=== PATIENT | female | born 1985 | race American Indian/Alaskan Native ===

== ENCOUNTER 2017-01-02 02:31 | Emergency (ER) | payer SELFPAY ==
[2017-01-02 02:51] VITALS: BP 122/75
[2017-01-02] MEDS ORDERED: Ketorolac 60 MG/2 ML SDV IM ONE (03:12)
[2017-01-02] MEDS ORDERED: LORazepam 1 MG Tab PO ONE (03:13)
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
== END 2017-01-02 03:53 | disposition home or self-care (01) ==
LOC: JP.ED 02:31
DX: F41.8 Other specified anxiety disorders (principal); R07.89 Other chest pain; F17.210 Nicotine dependence, cigarettes, uncomplicated; Z86.2 Personal history of diseases of the blood and blood-forming organs and certain disorders involving the immune mechanism
CPT/HCPCS: 96372; 99283; A9270; J1885